=== PATIENT | female | born 1960 | race Caucasian/White ===

== ENCOUNTER 2018-07-29 18:03 | Emergency (ER) | payer OTHER ==
[~2018-07-29] VITALS: Ht 154.9 cm; Wt 76.3 kg
[2018-07-29 18:06] VITALS: Ht 154.9 cm; Wt 76.3 kg
[2018-07-29] MEDS ORDERED: IBUPROFEN 600 MG TAB PO ONE (21:00)
--- NOTE | 2018-07-29 22:18 | ERD ---
ER Documentation Chief Complaint Chief Complaint Facial laceration and R hand pain s/p trip and fall; head first onto cement HPI 57-year-old female presenting after a trip and fall. She complains of right hand pain, left elbow pain, and facial pain. She did hit her face on the cement. She initially had a lot of nasal bleeding which has since resolved. She feels some swelling on the right side of her nose with some difficulty breathing out of that side. She denies any loss of consciousness, nausea, vomiting, headache, vision disturbance, focal weakness or numbness. No neck pain or back pain. She has difficulty moving her left arm secondary to pain in her elbow. Tetanus vaccine is up-to-date. Denies blood thinner use. ROS All systems reviewed and are negative except as per history of present illness. Allergies Allergies: Coded Allergies: Sulfa (Sulfonamide Antibiotics) (Verified Allergy, Unknown, hives, 07/29/18) PMhx/Soc History of Surgery: No Anesthesia Reaction: No Hx Neurological Disorder: No Hx Respiratory Disorders: No Hx Cardiac Disorders: No Hx Psychiatric Problems: No Hx Miscellaneous Medical Probl: Yes (Hypothyroid) Hx Alcohol Use: Yes (occasionally) Hx Substance Use: No Hx Tobacco Use: No Smoking Status: Never smoker FmHx Family History: No diabetes Physical Exam Vitals Vital Signs Date Temp Pulse Resp B/P (MAP) Pulse Ox O2 O2 Flow FiO2 Time Delivery Rate 07/29/18 98.0 70 16 122/85 99 Room Air 23:03 (97) 07/29/18 97.6 72 19 125/89 99 Room Air 22:00 (101) 07/29/18 97.6 71 19 124/92 99 Room Air 19:40 (103) 07/29/18 97.6 80 19 146/88 99 18:06 (107) Physical Exam INITIAL VITAL SIGNS: Reviewed by me GENERAL: Well developed, well nourished. HEAD: Small hematoma to the right lower forehead. EYES: EOMI. PERRL. No subconjunctival hemorrhage ENT: Nose with swelling over the nasal bridge and small abrasion. Some asymmetry of the nose which may be secondary to swelling. Instability of the nasal bridge noted, consistent with possible fracture. Facial bones otherwise nontender. No septal hematoma. Dried blood in the nares but no epistaxis. RESPIRATORY: Clear to auscultation bilaterally. No increased work of breathing. CV: Regular rate and rhythm. Cap refill <2sec. 2+ Radial and 2+ dorsalis pedis pulses. ABDOMEN: Soft, non-distended, non-tender. No guarding or rebound. Normal active bowel sounds. BACK: No thoracic or lumbar spine TTP. No CVA tenderness. EXTREMITIES: Left elbow with mild swelling held in partial flexion. Limited range of motion secondary to pain. No obvious deformities or bruising. Right hand with bruising over the palm and tenderness to palpation. No deformities noted. Otherwise all other extremities normal to inspection and palpation. No deformities seen. Full ROM in all joints except left elbow. SKIN: Warm, dry, pink. NEUROLOGIC: A&Ox4. No facial asymmetry. Motor and sensory function intact to all 4 extremities. Results 24 hrs Current Medications Medications Dose Sig/Gordo Start Time Status Last (Trade) Ordered Route PRN Stop Time Admin Dose Reason Admin Ibuprofen 600 mg ONCE ONCE 07/29/18 DC 07/29/18 (Motrin) PO 21:00 21:48 07/29/18 21:01 Procedures/MDM EMERGENT LABS AND DIAGNOSTIC STUDIES: Radiology Results as interpreted by Radiology below were reviewed by Frank Osuna MD: X-ray left elbow: IMPRESSION: 1. Extremely subtle nondisplaced fracture suggested at the base of the left radial head. 2. Positive fat pad signs compatible with hemarthrosis. X-ray right hand: No acute traumatic fracture dislocation Initial Nursing notes reviewed. Previous Medical Records requested via the Electronic Health Record. EMERGENCY DEPARTMENT COURSE / MEDICAL DECISION MAKING: Patient is presenting with a ground-level fall with nasal contusion and likely fracture, left elbow subtle fracture, and right hand contusion. She is neuro vascularly intact on exam. Per ACEP guidelines, CT head was not ordered. I do suspect she has nasal fracture for which I recommended follow-up with her primary care doctor for referral to specialist. No imaging necessary in the ER today. She has no continued bleeding. Nasal fracture precautions discussed. With regard to her subtle left elbow fracture, recommended splint placement with outpatient orthopedic follow-up. Short arm splint was placed with elbow at 90 degrees. Neurovascularly intact post splint placement. Recommended nonweightbearing in the left upper extremity All questions were answered. Patient was discharged in stable condition. Patient's blood pressure was elevated (>120/80) but appears stable without evidence of hypertensive emergency or urgency. The patient was counseled about the risks of hypertension and urged to pursue outpatient monitoring and therapy within a week with their primary care physician. Departure Diagnosis: Primary Impression: Fall Encounter type: initial encounter Qualified Codes: W19.XXXA - Unspecified fall, initial encounter Additional Impressions: Nasal bone fracture Encounter type: initial encounter Fracture type: closed Qualified Codes: S02.2XXA - Fracture of nasal bones, initial encounter for closed fracture Epistaxis Elbow fracture, left Encounter type: initial encounter Fracture type: closed Qualified Codes: S42.402A - Unspecified fracture of lower end of left humerus, initial encounter for closed fracture Contusion of right hand Encounter type: initial encounter Qualified Codes: S60.221A - Contusion of right hand, initial encounter Condition: Stable Patient Instructions: Elbow Fracture, Epistaxis (Adult), Fracture, Nose Versus Contus (No X-Ray) Additional Instructions: Make an appointment to see your primary care doctor. You will need a referral to an orthopedist. Return to the ER if you have any worsening symptoms ALEJANDRINA OSUNA MD Jul 29, 2018 22:18
[2018-07-29 23:03] VITALS: BP 122/85; PULSE 70; RESP 16
== END 2018-07-29 23:04 | disposition home or self-care (01) ==
LOC: E/R 18:03
DX: S02.2XXA Fracture of nasal bones, initial encounter for closed fracture (principal); S42.402A Unspecified fracture of lower end of left humerus, initial encounter for closed fracture; S60.221A Contusion of right hand, initial encounter; R04.0 Epistaxis; E03.9 Hypothyroidism, unspecified; W01.198A Fall on same level from slipping, tripping and stumbling with subsequent striking against other object, initial encounter; Y92.9 Unspecified place or not applicable